=== PATIENT | male | born 1935 | race Caucasian/White ===

== ENCOUNTER → 2020-04-20 | Outpatient (CLI) | payer MEDICARE, OTHER ==
[2020-04-20 20:07] LABS: Albumin, Blood 3.8 g/dL (3.4-5.0); Anion Gap 7 mmol/L (6-16); Blood Urea Nitrogen 23 mg/dL (8-24); Bun/Creatinine Ratio 28.1 (12.0-20.0); CO2, Blood 29 mmol/L (21-32); Calcium, Blood 8.9 mg/dL (8.5-10.1); Chloride, Blood 107 mmol/L (98-108); Creatinine, Blood 0.82 mg/dL (0.60-1.20); Free Thyroxine 1.03 ng/dL (0.70-1.60); Glomerular Filtration Rate >60 (60-); Glucose, Blood 153 mg/dL (70-99); Potassium, Blood 3.5 mmol/L (3.5-5.5); Sodium, Blood 143 mmol/L (136-145); Triiodothyronine, Free 2.76 pg/mL (2.18-3.98)
== END ==
LOC: LAB SHORT 19:04 → LAB 19:04
PROVIDERS: Student in an Organized Health Care Education/Training Program
DX: E03.9 Hypothyroidism, unspecified (principal); I10 Essential (primary) hypertension
CPT/HCPCS: 80069; 84439; 84443; 84481

== ENCOUNTER 2020-11-14 00:37 | Day surgery (SDC) | payer MEDICARE, OTHER | END 2020-11-14 22:42 | disposition home or self-care (01) | LOC: WOUND 00:37 | DX: L97.812 Non-pressure chronic ulcer of other part of right lower leg with fat layer exposed (principal); I87.2 Venous insufficiency (chronic) (peripheral); I73.9 Peripheral vascular disease, unspecified | CPT/HCPCS: G0463 ==

== ENCOUNTER 2020-11-21 00:02 | Day surgery (SDC) | payer MEDICARE, OTHER | END 2020-11-21 22:45 | disposition home or self-care (01) | LOC: WOUND | DX: L97.812 Non-pressure chronic ulcer of other part of right lower leg with fat layer exposed (principal); I87.2 Venous insufficiency (chronic) (peripheral); I73.9 Peripheral vascular disease, unspecified | CPT/HCPCS: 93922; A9270; G0463 ==

== ENCOUNTER 2020-11-29 00:29 | Day surgery (SDC) | payer MEDICARE, OTHER | END 2020-11-29 23:16 | disposition home or self-care (01) | LOC: WOUND 00:29 | DX: L97.812 Non-pressure chronic ulcer of other part of right lower leg with fat layer exposed (principal); I87.2 Venous insufficiency (chronic) (peripheral); I73.9 Peripheral vascular disease, unspecified | CPT/HCPCS: A9270; G0463 ==

== ENCOUNTER 2020-12-13 01:52 | Day surgery (SDC) | payer MEDICARE, OTHER | END 2020-12-13 23:11 | disposition home or self-care (01) | LOC: WOUND 01:52 | DX: L97.812 Non-pressure chronic ulcer of other part of right lower leg with fat layer exposed (principal); I87.2 Venous insufficiency (chronic) (peripheral); I73.9 Peripheral vascular disease, unspecified | CPT/HCPCS: G0463 ==

== ENCOUNTER 2020-12-20 00:22 | Day surgery (SDC) | payer MEDICARE, OTHER | END 2020-12-20 22:42 | disposition home or self-care (01) | LOC: WOUND 00:22 | DX: R60.0 Localized edema (principal); I87.2 Venous insufficiency (chronic) (peripheral); I73.9 Peripheral vascular disease, unspecified; Z87.2 Personal history of diseases of the skin and subcutaneous tissue | CPT/HCPCS: G0463 ==

== ENCOUNTER 2021-05-20 03:08 | Day surgery (SDC) | payer MEDICARE, OTHER | END 2021-05-20 22:53 | disposition home or self-care (01) | LOC: WOUND 03:08 | DX: L97.819 Non-pressure chronic ulcer of other part of right lower leg with unspecified severity (principal); I87.2 Venous insufficiency (chronic) (peripheral); I73.9 Peripheral vascular disease, unspecified | CPT/HCPCS: G0463 ==

== ENCOUNTER 2021-05-23 01:34 | Day surgery (SDC) | payer MEDICARE, OTHER | END 2021-05-23 22:57 | disposition home or self-care (01) | LOC: WOUND 01:34 | DX: L97.802 Non-pressure chronic ulcer of other part of unspecified lower leg with fat layer exposed (principal); I87.2 Venous insufficiency (chronic) (peripheral); I73.9 Peripheral vascular disease, unspecified ==

== ENCOUNTER 2021-05-27 03:52 | Day surgery (SDC) | payer MEDICARE, OTHER | END 2021-05-27 12:00 | disposition home or self-care (01) | LOC: WOUND 03:52 | DX: L97.802 Non-pressure chronic ulcer of other part of unspecified lower leg with fat layer exposed (principal); I87.2 Venous insufficiency (chronic) (peripheral); I73.9 Peripheral vascular disease, unspecified | CPT/HCPCS: G0463 ==

== ENCOUNTER → 2021-11-13 | Outpatient (CLI) | payer MEDICARE, OTHER ==
[2021-11-13 20:53] LABS: Prostate Specific Antigen 0.878 ng/mL (0.000-4.000)
[2021-11-15 16:10] LABS: PSA, %Free 13.2 %; PSA, Free 0.116 ng/mL
== END | disposition home or self-care (01) ==
LOC: LAB SHORT 15:16 → LAB 15:16
PROVIDERS: Family Medicine
DX: N40.1 Benign prostatic hyperplasia with lower urinary tract symptoms (principal); R53.82 Chronic fatigue, unspecified
CPT/HCPCS: 83001; 83002; 84153; 84154; 84402

== ENCOUNTER 2022-03-10 01:59 | Day surgery (SDC) | payer MEDICARE, OTHER | END 2022-03-10 23:10 | disposition home or self-care (01) | LOC: WOUND 01:59 | DX: I87.312 Chronic venous hypertension (idiopathic) with ulcer of left lower extremity (principal); L97.822 Non-pressure chronic ulcer of other part of left lower leg with fat layer exposed; I73.9 Peripheral vascular disease, unspecified | CPT/HCPCS: G0463 ==

== ENCOUNTER 2022-03-14 02:53 | Day surgery (SDC) | payer MEDICARE, OTHER | END 2022-03-14 23:07 | disposition home or self-care (01) | LOC: WOUND 02:53 | DX: I87.312 Chronic venous hypertension (idiopathic) with ulcer of left lower extremity (principal); L97.929 Non-pressure chronic ulcer of unspecified part of left lower leg with unspecified severity | CPT/HCPCS: G0463 ==

== ENCOUNTER 2022-03-17 01:26 | Day surgery (SDC) | payer MEDICARE, OTHER | END 2022-03-17 23:19 | disposition home or self-care (01) | LOC: WOUND 01:26 | DX: I87.312 Chronic venous hypertension (idiopathic) with ulcer of left lower extremity (principal); I10 Essential (primary) hypertension; L97.822 Non-pressure chronic ulcer of other part of left lower leg with fat layer exposed | CPT/HCPCS: A9270; G0463 ==

== ENCOUNTER 2022-03-24 03:44 | Day surgery (SDC) | payer MEDICARE, OTHER | END 2022-03-24 22:42 | disposition home or self-care (01) | LOC: WOUND 03:44 | DX: I87.312 Chronic venous hypertension (idiopathic) with ulcer of left lower extremity (principal); L97.822 Non-pressure chronic ulcer of other part of left lower leg with fat layer exposed; I73.9 Peripheral vascular disease, unspecified; I10 Essential (primary) hypertension | CPT/HCPCS: G0463 ==

== ENCOUNTER → 2023-01-09 | Outpatient (CLI) | payer MEDICARE, OTHER ==
[2023-01-09 12:59] LABS: CHOL/HDL RATIO 2.6; Cholesterol 133 mg/dL (50-200); HDL Cholesterol 52 mg/dL (>39); LDL/HDL RATIO 1.1; Low Density Lipoprotein Chol 59 mg/dL (0-110); Triglycerides 108 mg/dL (30-160); Very Low Density Lipoprot Chol 21 mg/dL (6-32)
== END | disposition home or self-care (01) ==
LOC: LAB SHORT 10:07 → LAB 10:07
PROVIDERS: Family Medicine
DX: E78.5 Hyperlipidemia, unspecified (principal)
CPT/HCPCS: 80061